=== PATIENT | female | born 1970 | race Two or more races ===

== ENCOUNTER → 2020-04-06 08:57 | Outpatient (CLI) | payer OTHER, SELFPAY ==
--- NOTE | ~2020-04-06 | XR_ITS ---
XR finger 3rd RT min 2V DATE: 04/06/2020 09:12 INDICATION: Right third digit pain TECHNIQUE: 4 views COMPARISON: None FINDINGS: There is mild soft tissue swelling centered at the proximal interphalangeal joint. No fract ure or dislocation, periosteal reaction or bone destruction. No radiopaque soft tissue foreign body o r subcutaneous emphysema. IMPRESSION: Nonspecific mild soft tissue swelling centered at proximal interphalangeal joint; no frac ture or dislocation Reviewed, dictated and finalized at location A. IMPRESSION: Nonspecific mild soft tissue swelling centered at proximal interpha langeal joint; no fracture or dislocation
== END ==
PROVIDERS: PCP Nurse Practitioner; Visit Provider Nurse Practitioner
DX: M79.646 Pain in unspecified finger(s) (principal); M79.89 Other specified soft tissue disorders
CPT/HCPCS: 73140

== ENCOUNTER 2020-06-26 15:52 | Outpatient (CLI) | payer OTHER, SELFPAY ==
--- NOTE | 2020-07-04 13:34 | WPDHOLTEREM ---
Holter/Event Monitor Holter/Event Monitor Date of procedure: 07/04/20 Procedure Type: 48 hour Holter monitor Diagnosis: tachycardia Indications: tachycardia Image/Tracing Quality: acceptable Finding: This is a 48 hours Holter monitor in which the underlying rhythm was sinus with an average heart rate of 81 beats per minute, minimum 50 beats per minute occurring at 4:06 a.m. and a maximum of 176 beats per minute occurring at 6:22 a.m.. There is no atrial fibrillation and/or atrial flutter noted. There were no prolonged pauses and or high-grade AV blocks identified. The longest RR interval was 1.4 seconds occurring at 2:08 AM. Occurring at 4:29 p.m. there is a 14 beat run of SVT without associated symptoms. At 6:22 a.m., there is an asymptomatic narrow complex tachycardia at 176 beats per minute which may represent sinus tachycardia, however, due to baseline artifact SVT cannot be excluded. Pt activity is not noted in conjunction with this event. There were 4 isolated premature ventricular contractions without sustained or nonsustained VT. In total, 88 supraventricular ectopic beats with 114 beat run as noted, 11 atrial pairs and 48 isolated premature atrial contractions. Review patient symptom diary indicates complaints of shortness of breath at 9:10 a.m. associated with probable sinus tachycardia heart rate 117 beats per minute with marked baseline artifact. At 1:09 p.m. patient later shortness of breath associated sinus rhythm heart rate 90 beats per minute without ectopy. Conclusion: Underlying rhythm is predominantly sinus with clear evidence of transient asymptomatic SVT, sinus tachycardia versus SVT at 176 beats per minute which no symptoms were noted but activity was not included. No atrial fibrillation, atrial flutter, prolonged pauses or high-grade AV blocks identified. Clinical correlation advised.
== END 2020-06-26 15:53 | disposition home or self-care (01) ==
LOC: ANHCARD 15:53
PROVIDERS: PCP Nurse Practitioner; Visit Provider Internal Medicine
DX: R00.0 Tachycardia, unspecified (principal)
CPT/HCPCS: 93225; 93226

== ENCOUNTER 2020-11-28 09:07 | Outpatient (CLI) | payer OTHER, SELFPAY ==
--- NOTE | 2021-01-07 10:58 | WPDHOMESLEEP ---
Sleep Study - Home Unattended Date of Study: 11/28/20 Ordering Provider: Corby Valero DO Interpreting Provider: Simin Medina MD Home Sleep Study Type: Apnea Link Air Height: 1.65 m Weight: 58.967 kg Body Mass Index: 21.6 Neck Circumference (inches): 13 [place]: 13 Reason for Sleep Study Tired in the day, gasping at night, brain fog, Sleep History Douglas Gilbert is a 50 year old female with excessive daytime sleepiness. She reports gasping at night and difficulty waking in the morning. She frequently awakens from sleep feeling short of breath. She constantly awakens at night with heartburn, belching or coughing. She does not snore and her fiancee does not note that she snores. She frequently has trouble sleeping with a cold and frequently wakes up gasping for breath during the night. She frequently has breathing problems at night observed by others. She occasionally sweats excessively at night she frequently notices her heart pounding or beating irregularly at night. She occasionally falls asleep during the day and occasionally falls asleep involuntarily. About twice a year she has fallen asleep while driving the car. She does not have loss of muscle tone with strong emotion. She occasionally has daytime difficulties due to excessive sleepiness. She rarely feels paralyzed on waking or falling asleep. She rarely has vivid dreamlike scenes upon awakening or falling asleep. She never feels afraid to go to sleep. She rarely has nightmares. She constantly remembers her dreams. She occasionally has racing thoughts. She rarely feels sad or depressed. She occasionally has anxiety. She frequently has muscular tension. She occasionally notices parts of her body jerking. She rarely kicks at night. She occasionally has crawling and aching feelings in her legs and occasionally has leg pain at night. She rarely has morning jaw pain. She frequently grinds her teeth during sleep. She occasionally has bothered by pain during the day. She rarely is awakened by pain at night. She constantly wakes up feeling stiff in the morning with sore or achy muscles. She constantly wakes up with pain in the neck and spine. She has fatigue, memory and concentration difficulties and she takes antacids regularly. Normal bedtime is 8:00 p.m. falling asleep within 15-20 minutes, waking at least 3 times during the night. When she awakes, she goes to the bathroom, gets a drink of water, stretches, repositions and takes deep breaths. She wakes the morning by 3:10 a.m.. On the weekends, she goes to bed later, between 9 or 10:00 p.m. and wakes at 7:00 a.m.. She has no energy. Her work shift changes, and she wakes at different times based on when she goes to work. Her wake-up time will shift between 3 3:00 a.m. 4:00 a.m. and 5:00 a.m.. She does not take naps. A short nap is not refreshing. She is drowsy for 3 hours after waking. She feels better in the morning compared other times of day Habits: Never smoked tobacco. Caffeine 3 cups per day. No alcohol or recreational drugs. FORMERLY [facility] Past Medical History Medical History (Updated 01/07/21 @ 11:08 by Simin Medina MD) Acid reflux High cholesterol History of paroxysmal supraventricular tachycardia Irritable bowel Seasonal allergies Surgical History Surgical History History of colonoscopy [place] teeth removed Family History Family History Father Diabetes mellitus Acute myocardial infarction Hypertension High cholesterol Mother Hypertension Cancer of adenoid Social History Social History Smoking status: Never smoker Alcohol intake: never Substance use: never Medications Home Medications Medication Instructions Recorded Confirmed Type cetirizine 10 mg tablet 10 mg PO DAILY 10/07/19 01/07/21 History aleisha
[2021-01-07 11:05] VITALS: BMI 21.6
== END 2020-11-28 09:08 | disposition home or self-care (01) ==
LOC: ANHCSM 09:08
PROVIDERS: PCP Nurse Practitioner; Visit Provider Internal Medicine
DX: G47.10 Hypersomnia, unspecified (principal)
CPT/HCPCS: 95806

== ENCOUNTER → 2021-09-06 07:57 | Outpatient (CLI) | payer OTHER, SELFPAY ==
[2021-09-06 14:19] LABS: SARS-CoV-2 RNA PCR Positive
[2021-09-06 14:52] LABS: Influenza A QL RT-PCR Negative (Negative); Influenza B QL RT-PCR Negative (Negative)
== END ==
PROVIDERS: PCP Nurse Practitioner; Visit Provider Internal Medicine
DX: R68.89 Other general symptoms and signs (principal); U07.1 COVID-19
CPT/HCPCS: 87502; 87804; C9803; U0003; U0005

== ENCOUNTER 2023-01-01 09:05 | Outpatient (CLI) | payer OTHER, SELFPAY ==
--- NOTE | 2023-01-01 | ECG_ITS ---
Measurements Intervals [place] Rate: 64 P: 1 MA: 133 QRS: 54 QRSD: 102 T: 38 QT: 457 QTc: 472 Interpretive Statements SINUS RHYTHM INCOMPLETE RIGHT BUNDLE BRANCH BLOCK BORDERLINE ECG NO PREVIOUS ECG AVAILABLE FOR COMPARISON Electronically Signed On 01-01-2023 10:05:34 CDT by Chilo Root D.O.
--- NOTE | ~2023-01-01 | XR_ITS ---
EXAMINATION: XR chest 2V 01/01/2023 09:40 INDICATION: Preop for neck surgery PROCEDURE: 11/01/2018 COMPARISON: Heart size normal. No focal air space disease, pulmonary edema, pleural effusion or suspe cted pneumothorax. FINDINGS: The lungs are clear. The cardiomediastinal silhouette is within normal limits. There are no pleural effusions. There is no pneumothorax suspected. IMPRESSION: 1: NO ACUTE CARDIOPULMONARY DISEASE. Reviewed, dictated and finalized at location L.
== END 2023-01-01 09:06 | disposition home or self-care (01) ==
PROVIDERS: PCP Family Medicine
DX: Z01.810 Encounter for preprocedural cardiovascular examination (principal); Z01.811 Encounter for preprocedural respiratory examination; M54.12 Radiculopathy, cervical region; I45.10 Unspecified right bundle-branch block
CPT/HCPCS: 71046; 93005

== ENCOUNTER 2023-08-04 14:05 | Outpatient (CLI) | payer OTHER, SELFPAY ==
[2023-08-04 14:59] LABS: Strep Group A RT-PCR NOT DETECTED (Negative)
[2023-08-04 15:09] LABS: Influenza A QL RT-PCR Negative (Negative); Influenza B QL RT-PCR Negative (Negative); SARS-CoV-2 RNA PCR Negative (Negative)
== END 2023-08-04 14:06 | disposition home or self-care (01) ==
LOC: ANHLAB 14:07
PROVIDERS: PCP Nurse Practitioner Family; Visit Provider Nurse Practitioner Family
DX: R69 Illness, unspecified (principal); J02.9 Acute pharyngitis, unspecified; R09.81 Nasal congestion; Z20.822 Contact with and (suspected) exposure to COVID-19
CPT/HCPCS: 87636; 87651

== ENCOUNTER → 2023-08-12 07:00 | Outpatient (CLI) | payer OTHER, SELFPAY ==
--- NOTE | ~2023-08-12 | MR_ITS ---
MRI of the cervical spine Clinical History: Gait abnormality Technique: Axial T2-weighted and gradient images, and sagittal T1-weighted, T2-weighted, and STIR antoinette ges were acquired. Findings: There is probable disc prosthesis or interbody fusion cage at the C4-C5 disc space with ass ociated susceptibility artifact. No fracture or subluxation evident. No other bone marrow signal abno rmality evident. At C2-C3, there is no disc bulge or herniation. No spinal canal stenosis, cord compression, or neural foraminal narrowing. At C3-C4, there is minimal disc osteophyte convex. No spinal canal stenosis, cord compression, or def inite neural foraminal narrowing. At C4-C5, there is no definite canal stenosis or cord compression. No definite neural foraminal narro wing. At C5-C6, there is no significant disc bulge or herniation. There is mild facet arthropathy bilateral ly. No definite canal stenosis, cord compression, or neural foraminal narrowing. At C6-C7, there is facet arthropathy, especially in the right side. There is right neural foraminal n arrowing. Left neural foramen preserved. No central canal stenosis or cord compression. No abnormal signal seen in the spinal cord. Paravertebral soft tissues are unremarkable. Impression: Mild spondylosis, as above. Probable disc prosthesis or interbody fusion cage at the C4-C5 disc level. Correlate with prior surgi ian history. Reviewed, dictated and finalized at [facility]. INE TOOL DESIGNER Impression: Mild spondylosis, as above. Probable disc prosthesis or interbody fusion cage at the C4-C5 disc level. Rigo elate with prior surgical history.
--- NOTE | ~2023-08-12 | MR_ITS ---
MRI of the brain Clinical History: Gait abnormality Technique: Axial and sagittal T1-weighted images were acquired. These were followed by axial T2-weigh lorraine, diffusion weighted, gradient, and FLAIR images. Findings: There is no abnormal signal in the brain parenchyma. No acute infarct, intracranial hemorrh age or mass lesion. Ventricles and subarachnoid spaces are unremarkable. Orbits are unremarkable. Paranasal sinuses and m astoid air cells are clear. Major intracranial flow voids appear intact. Sagittal midline structures are intact. IMPRESSION: Unremarkable exam. Reviewed, dictated and finalized at location M. ESALE ACCOUNT MANAGER IMPRESSION: Unremarkable exam.
== END ==
PROVIDERS: PCP Nurse Practitioner Family; Visit Provider Nurse Practitioner Family
DX: R26.89 Other abnormalities of gait and mobility (principal); M47.892 Other spondylosis, cervical region
CPT/HCPCS: 70551; 72141

== ENCOUNTER 2024-09-22 10:44 | Emergency (ER) | payer OTHER, SELFPAY ==
[2024-09-22] VITALS (19 sets, daily range): BP systolic 115–154; BP diastolic 61–93; PULSE 64–93; RESP 13–23; TEMP 37; O2SAT 92–100
--- NOTE | ~2024-09-22 | CT_ITS ---
EXAMINATION: CT abdomen pelvis w con DATE: 09/22/2024 16:55 INDICATION: Abdominal pain TECHNIQUE: Computed tomography (CT) of the abdomen and pelvis was performed with 100 mL Omnipaque-350 intravenous contrast. Automated exposure control and iterative reconstruction technique were employe d. The dose-length product was 275.86 mGy-cm. COMPARISON: 02/11/2015 FINDINGS: Minimal dependent atelectasis in bilateral lower lobes. Heart size is normal. No pericardial or pleur al effusion. Liver, gallbladder, spleen, pancreas, bilateral adrenal glands and kidneys are normal. B owels including the appendix are normal. Bladder is normal. 1.6 similar enhancing fibroid at the ante rior uterine body. No free intraperitoneal gas or fluid. No pathologically enlarged abdominal or pelv ic lymphadenopathy. Mild lumbar spondylosis. IMPRESSION: 1. No acute intra-abdominal/pelvic process. 2. Fibroid uterus. Reviewed, dictated and finalized at location B. ECTION AGENT
--- NOTE | ~2024-09-22 | XR_ITS ---
CHEST RADIOGRAPH, PA AND LATERAL CLINICAL HISTORY: FEVER, COUGH, VOMITING . COMPARISON: None available TECHNIQUE: PA and lateral views of the chest. FINDINGS The cardiomediastinal silhouette is unremarkable. The lungs are clear. Visualized osseous structures and soft tissues are unremarkable. IMPRESSION: No focal infiltrate or effusion. Reviewed, dictated and finalized at location A. OR HYDROGEOLOGIST
--- NOTE | 2024-09-22 11:27 | ED_ITS ---
HPI - Abdominal Pain General Chief Complaint: Abdominal Pain <Reba Feliz PA-C - Last Filed: 09/23/24 17:07> Stated Complaint: body aches, nausea, abd pain, fever, chills <Reba Feliz PA-C - Last Filed: 09/23/24 17:07> Time Seen by Provider: 09/22/24 11:27 <Reba Feliz PA-C - Last Filed: 09/23/24 17:07> Focused HPI: This is a 54 year old female that presents to the ER for abdominal pain. Ongoing over the last couple of days. Reports associated nausea, vomiting, headache, myalgias, fevers. GENERAL: Well-appearing, well-nourished, and in no acute distress. HEAD: Normocephalic, atraumatic. CHEST: Clear to auscultation. ?No respiratory distress. HEART: Regular rate and rhythm.? NEURO: ?Alert and oriented x3. Patient screened in triage and initial orders placed.? ?Additional care and disposition to be based upon?diagnostic testing and treatment. <Reba Feliz PA-C - Last Filed: 09/23/24 17:07> History of Present Illness HPI narrative: Agree with the above HPI <Ger Rose MD - Last Filed: 09/22/24 20:00> Related Data Home Medications: Home Medications ?Medication ?Instructions ?Recorded ?Confirmed ?Last Taken ?Type cetirizine 10 mg tablet (Zyrtec) 10 mg PO DAILY 10/07/19 08/09/24 Unknown History <Reab Feliz PA-C - Last Filed: 09/23/24 17:07> Allergies/Adverse Reactions: Allergies Allergy/AdvReac Type Severity Reaction Status Date / Time Penicillins Allergy Severe hives Verified 09/22/24 12:44 <Reba Feliz PA-C - Last Filed: 09/23/24 17:07> Review of Systems 2 Review of Systems: All systems reviewed & are unremarkable except as noted in HPI and below <Ger Rose MD - Last Filed: 09/22/24 20:00> PMFSH Past Medical History Medical History: Medical History COVID-19 Hypothyroidism Mild persistent reactive airway disease with acute exacerbation Osteopenia Seasonal allergies History of paroxysmal supraventricular tachycardia Irritable bowel High cholesterol Acid reflux <Reba Feliz PA-C - Last Filed: 09/23/24 17:07> Surgical History Surgical History: Surgical History Hx of cervical spine surgery [place] teeth removed History of colonoscopy <Reba Feliz PA-C - Last Filed: 09/23/24 17:07> Family History Family History: Family History Father Diabetes mellitus Acute myocardial infarction Hypertension High cholesterol Mother Hypertension Cancer of adenoid Father Family history of mental disorder Cerebrovascular accident Family history of Parkinson's disease Family history of coronary artery disease Family history of congestive heart failure Sibling Breast cancer <Reba Feliz PA-C - Last Filed: 09/23/24 17:07> Social History Social History: Social History Smoking status: Never smoker Second hand tobacco smoke exposure: No Alcohol intake: never Substance use: never Do You Feel Safe in your Home?: Yes Lack of Transportation: No Lack of Food: Sometimes True Current Housing: I Have Housing Concerned About Future Housing: No Difficulty Paying Gas/Electric Bills: YES Difficulty Paying for Meds: Decline to Answer Currently Unemployed: No Education: Bachelor's Degree Difficulty w/ Childcare or Family Care: No Living arrangements: with family Occupation/Education: occupation Additional occupation/education comments: [employer] Gender identity (if verbalized by the patient): Female Sexual Orientation (if Verbalized by the Patient): Straight or Heterosexual <Reba Feliz PA-C - Last Filed: 09/23/24 17:07> Exam 2 Narrative: APPEARANCE: Well appearing, no pain, no distress, well-nourished. HEAD: normocephalic, atraumatic. EYES: PERRLA/EOMI, conjunctivae clear. NOSE: Normal no drainage EARS:TMS clear with good light reflex. THROAT: Pharynx clear, no exudate. NECK: Supple. No adenopathy, no masses. RESPIRATORY: Airway patent, respirations nonlabored. Clear to auscultation bilaterally, no rales, rhonchi, wheezing. CARDIOVASCULAR: Regular rate and rhythm without murmurs rubs or gallops. ABDOMINAL: Epigastric tenderness to palpation MUSCULOSKELETAL: Moves all extremities. Strength/ROM intact, No edema, No calf tenderness. NEURO: Alert. Cranial nerves II through XII intact. Good gait. Good coordination SKIN: Warm, dry. Normal Color <Ger Rose MD - Last Filed: 09/22/24 20:00> Course Vital Signs Vital signs: Vital Signs Temperature 98.6 F 09/22/24 10:59 Pulse Rate 93 09/22/24 10:59 Respiratory Rate 16 09/22/24 10:59 Blood Pressure 129/89 09/22/24 10:59 Pulse Oximetry 98 09/22/24 10:59 Oxygen Delivery Room Air 09/22/24 10:59 Temperature 98.6 F 09/22/24 10:59 Pulse Rate 66 09/22/24 18:23 Respiratory Rate 16 09/22/24 18:23 Blood Pressure 136/85 09/22/24 18:23 Pulse Oximetry 96 09/22/24 18:23 Oxygen Delivery Room Air 09/22/24 10:59 <Reba Feliz PA-C - Last Filed: 09/23/24 17:07> Vital Signs Temperature 98.6 F 09/22/24 10:59 Pulse Rate 93 09/22/24 10:59 Respiratory Rate 16 09/22/24 10:59 Blood Pressure 129/89 09/22/24 10:59 Pulse Oximetry 98 09/22/24 10:59 Oxygen Delivery Room Air 09/22/24 10:59 Temperature 98.6 F 09/22/24 10:59 Pulse Rate 66 09/22/24 18:23 Respiratory Rate 16 09/22/24 18:23 Blood Pressure 136/85 09/22/24 18:23 Pulse Oximetry 96 09/22/24 18:23 Oxygen Delivery Room Air 09/22/24 10:59 <Ger Rose MD - Last Filed: 09/22/24 20:00> MDM - Abdominal Pain MDM Narrative Medical decision making narrative: 54-year-old female presents to the emergency department for evaluation for cough congestion flu-like symptoms and abdominal pain. Patient was afebrile with no leukocytosis and hemoglobin of 13.4. Patient had no significant abnormalities on her CMP with normal AST ALT alk-phos and lipase. Urine did have ketones but no significant evidence of infection, patient did test positive for influenza a was negative influenza B and for COVID. CT abdomen pelvis was ordered due to the patient complaint of epigastric abdominal pain. CT scan was negative. Patient was treated with famotidine, GI cocktail and Protonix. On re-evaluation patient states she does feel significantly improved. Patient does state that she takes ibuprofen daily for abdominal pain. Patient was advised to hold off on the ibuprofen during this current illness. Patient will be provided albuterol, Tessalon Perles and additional medication for pain control. <Ger Rose MD - Last Filed: 09/22/24 20:00> Differential Diagnosis Differential diagnosis: Likely abdominal pain, acute appendicitis, calculus of kidney, constipation, diverticulitis, endometriosis, gastroenteritis, pancreatitis, small bowel obstruction and other <Ger Rose MD - Last Filed: 09/22/24 20:00> Lab Data Attestation: I reviewed the patient's lab results. <Ger Rose MD - Last Filed: 09/22/24 20:00> Result diagrams: 09/22/24 11:32 09/22/24 11:32 <Reba Feliz PA-C - Last Filed: 09/23/24 17:07> Labs: Lab Results 09/22/24 09/22/24 09/22/24 Range/Units 11:32 11:42 11:56 WBC 2.8 L (4.5-10.0) K/mm3 RBC 4.94 (4.2-5.4) M/mm3 Hgb 13.4 (12.0-15.0) g/dL Hct 41.9 (37.0-47.0) % MCV 84.8 (80-100) fl MCH 27.1 (26-34) pg MCHC 32.0 (32-36) g/dl RDW 13.0 (11.5-14.5) % Plt Count 265 (150-375) k/mm3 MPV 8.7 (7.4-10.4) fl Immature Gran % (Auto) 0.0 (0-0.5) % Neut % (Auto) 23.0 L (45.5-73.1) % Lymph % (Auto) 63.0 H (18.3-44.2) % [place] % (Auto) 13.2 H (2.6-8.5) % Eos % (Auto) 0.4 (0-4.4) % Baso % (Auto) 0.4 (0.2-1.2) % Lymph # (Auto) 1.77 (0.9-3.2) K/mm3 [place] # (Auto) 0.4 (0.1-0.6) K/mm3 Eos # (Auto) 0.0 (0-0.3) K/mm3 Baso # (Auto) 0.0 (0.0-0.1) K/mm3 Abs Immat Gran (auto) 0.00 (0.00-0.031) K/mm3 Absolute Neuts (auto) 0.7 L (1.3-6.7) K/mm3 Absolute Nucleated RBC 0.000 (0.0-0.012) K/mm3 Nucleated RBC % 0.0 (0.0-0.2) % Atypical Lymphocytes Present Platelet Estimate Adequate (Adequate) Schistocytes None seen Sodium 140 (137-145) mmol/L Potassium 3.8 (3.4-5.0) mmol/L Chloride 102 (98-107) mmol/L Carbon Dioxide 28 (22-30) mmol/L Anion Gap 10 (4-12) mmol/L BUN 12 (7-17) mg/dL Creatinine 0.66 L (0.7-1.0) mg/dL Estim Creat Clear Calc 74 ml/min Estimated GFR > 60 (59 - ) Glucose 100 (65-110) mg/dL Calcium 9.0 (8.4-10.2) mg/dL Total Bilirubin 0.5 (0.2-1.3) mg/dL AST 35 (14-36) U/L ALT 32 (6-35) U/L Alkaline Phosphatase 121 (38-126) U/L Total Protein 8.0 (6.3-8.2) g/dL Albumin 4.1 (3.5-5.1) g/dL Lipase 170 (23-300) U/L Urine Color Dark yellow (Yellow) Urine Appearance Cloudy H (Clear) Urine pH 5.5 (5.0-9.0) Ur Specific [place] 1.023 (1.001-1.035) Urine Protein 1+ H (Negative) mg/dL Urine Glucose (UA) Negative (Negative) mg/dL Urine Ketones 1+ H (Negative) mg/dL Ur Blood (Man) Trace (Negative) Urine Nitrate Negative (Negative) Urine Bilirubin 1+ H (Negative) Urine Urobilinogen 1.0 (<2.0) mg/dL Add Ur Microanalysis Reviewed Leukocyte Esterase Rfl Trace H (Negative) BEN/UL Urine RBC 3-5 H (0-2) /hpf Urine WBC 6-10 H (0-3) /hpf Ur Squamous Epith Cells Moderate (Few) /hpf Calcium Oxalate Crystal Present (None) /hpf Urine Bacteria 1+ H /hpf Urine Casts 0-2 Urine Mucus Present /lpf POC Urine HCG, Qual Negative (Negative) Influenza A (RT-PCR) Positive A (Negative) Influenza B (RT-PCR) Negative (Negative) SARS-CoV-2 RNA (RT-PCR) Negative (Negative) <Reba Feliz PA-C - Last Filed: 09/23/24 17:07> Lab Results 09/22/24 09/22/24 09/22/24 Range/Units 11:32 11:42 11:56 WBC 2.8 L (4.5-10.0) K/mm3 RBC 4.94 (4.2-5.4) M/mm3 Hgb 13.4 (12.0-15.0) g/dL Hct 41.9 (37.0-47.0) % MCV 84.8 (80-100) fl MCH 27.1 (26-34) pg MCHC 32.0 (32-36) g/dl RDW 13.0 (11.5-14.5) % Plt Count 265 (150-375) k/mm3 MPV 8.7 (7.4-10.4) fl Immature Gran % (Auto) 0.0 (0-0.5) % Neut % (Auto) 23.0 L (45.5-73.1) % Lymph % (Auto) 63.0 H (18.3-44.2) % [place] % (Auto) 13.2 H (2.6-8.5) % Eos % (Auto) 0.4 (0-4.4) % Baso % (Auto) 0.4 (0.2-1.2) % Lymph # (Auto) 1.77 (0.9-3.2) K/mm3 [place] # (Auto) 0.4 (0.1-0.6) K/mm3 Eos # (Auto) 0.0 (0-0.3) K/mm3 Baso # (Auto) 0.0 (0.0-0.1) K/mm3 Abs Immat Gran (auto) 0.00 (0.00-0.031) K/mm3 Absolute Neuts (auto) 0.7 L (1.3-6.7) K/mm3 Absolute Nucleated RBC 0.000 (0.0-0.012) K/mm3 Nucleated RBC % 0.0 (0.0-0.2) % Atypical Lymphocytes Present Platelet Estimate Adequate (Adequate) Schistocytes None seen Sodium 140 (137-145) mmol/L Potassium 3.8 (3.4-5.0) mmol/L Chloride 102 (98-107) mmol/L Carbon Dioxide 28 (22-30) mmol/L Anion Gap 10 (4-12) mmol/L BUN 12 (7-17) mg/dL Creatinine 0.66 L (0.7-1.0) mg/dL Estim Creat Clear Calc 74 ml/min Estimated GFR > 60 (59 - ) Glucose 100 (65-110) mg/dL Calcium 9.0 (8.4-10.2) mg/dL Total Bilirubin 0.5 (0.2-1.3) mg/dL AST 35 (14-36) U/L ALT 32 (6-35) U/L Alkaline Phosphatase 121 (38-126) U/L Total Protein 8.0 (6.3-8.2) g/dL Albumin 4.1 (3.5-5.1) g/dL Lipase 170 (23-300) U/L Urine Color Dark yellow (Yellow) Urine Appearance Cloudy H (Clear) Urine pH 5.5 (5.0-9.0) Ur Specific [place] 1.023 (1.001-1.035) Urine Protein 1+ H (Negative) mg/dL Urine Glucose (UA) Negative (Negative) mg/dL Urine Ketones 1+ H (Negative) mg/dL Ur Blood (Man) Trace (Negative) Urine Nitrate Negative (Negative) Urine Bilirubin 1+ H (Negative) Urine Urobilinogen 1.0 (<2.0) mg/dL Add Ur Microanalysis Reviewed Leukocyte Esterase Rfl Trace H (Negative) BEN/UL Urine RBC 3-5 H (0-2) /hpf Urine WBC 6-10 H (0-3) /hpf Ur Squamous Epith Cells Moderate (Few) /hpf Calcium Oxalate Crystal Present (None) /hpf Urine Bacteria 1+ H /hpf Urine Casts 0-2 Urine Mucus Present /lpf POC Urine HCG, Qual Negative (Negative) Influenza A (RT-PCR) Positive A (Negative) Influenza B (RT-PCR) Negative (Negative) SARS-CoV-2 RNA (RT-PCR) Negative (Negative) <Ger Rose MD - Last Filed: 09/22/24 20:00> Imaging Data Radiologist's impression: ITS Impressions Chest X-Ray 09/22/24 12:02 IMPRESSION: No focal infiltrate or effusion. Abdomen/Pelvis CT 09/22/24 16:58 IMPRESSION: 1. No acute intra-abdominal/pelvic process. 2. Fibroid uterus. <Reba Feliz PA-C - Last Filed: 09/23/24 17:07> ITS Impressions Chest X-Ray 09/22/24 12:02 IMPRESSION: No focal infiltrate or effusion. Abdomen/Pelvis CT 09/22/24 16:58 IMPRESSION: 1. No acute intra-abdominal/pelvic process. 2. Fibroid uterus. <Ger Rose MD - Last Filed: 09/22/24 20:00> Critical Care Time Critical Care Time Critical Care Time: No <Reba Feliz PA-C - Last Filed: 09/23/24 17:07> Discharge Plan Discharge Clinical Impression: Epigastric abdominal pain, Influenza A <Reba Feliz PA-C - Last Filed: 09/23/24 17:07> Patient Disposition: Home, Self-Care <Reba Feliz PA-C - Last Filed: 09/23/24 17:07> Condition: Stable <Reba Feliz PA-C - Last Filed: 09/23/24 17:07> Instructions: Antibiotic Form, Diet for Stomach Ulcers and Gastritis (ED), Influenza (DC), Abdominal Pain (ED) <Reba Feliz PA-C - Last Filed: 09/23/24 17:07> Additional Instructions: Refrain from taking ibuprofen. Continue to take your pantoprazole all as directed. Albuterol inhaler as needed for shortness of breath. Tessalon Perles as needed for cough suppression. [place] as needed for additional pain control. Have close follow-up with your primary care physician. <Reba Feliz PA-C - Last Filed: 09/23/24 17:07> Patient Language: Czech <Reba Feliz PA-C - Last Filed: 09/23/24 17:07> Prescriptions: New hydrocodone-acetaminophen 5-325 mg tablet 1 tablet PO Q12H PRN (Reason: pain) Qty: 14 0RF benzonatate 100 mg capsule 100 mg PO TID PRN (Reason: cough) Qty: 14 0RF albuterol sulfate 90 mcg/actuation HFA aerosol inhaler 1 puff inhalation QID Qty: 6.7 0RF ondansetron 4 mg tablet,disintegrating 4 mg PO Q8H PRN (Reason: nausea and vomiting) Qty: 14 0RF No Action cetirizine [Zyrtec] 10 mg tablet 10 mg PO DAILY fluticasone propionate [Flonase Allergy Relief] 50 mcg/actuation spray,suspension 2 spray intranasal DAILY PRN (Reason: nasal congestion) Qty: 16 0RF Rx Instructions: administer into each nostril metoprolol succinate 50 mg tablet extended release 24 hr 50 mg PO DAILY Qty: 90 1RF prochlorperazine maleate [Compazine] 10 mg tablet 10 mg PO Q8H PRN (Reason: nausea and vomiting) Qty: 30 0RF dicyclomine 20 mg tablet 20 mg PO TID PRN (Reason: abdominal pain) Qty: 30 0RF albuterol sulfate 90 mcg/actuation HFA aerosol inhaler 2 puff INHALATION Q4H PRN (Reason: shortness of breath or wheezing) Qty: 8.5 0RF cholecalciferol (vitamin D3) 1,250 mcg (50,000 unit) capsule 50,000 unit PO WEEKLY Qty: 12 3RF meloxicam 15 mg tablet See Rx Instructions .ROUTE .COMPLEX Qty: 90 0RF Dose Instruction: TAKE 1 TABLET BY MOUTH EVERY DAY Rx Instructions: TAKE 1 TABLET BY MOUTH EVERY DAY pantoprazole 20 mg tablet,delayed release (DR/EC) 20 mg PO QAM Qty: 90 3RF <Reba Feliz PA-C - Last Filed: 09/23/24 17:07> Follow-up/Referrals: Anjelica Cruz APRN [Primary Care Provider] - <Reba Feliz PA-C - Last Filed: 09/23/24 17:07>
--- OUTSIDE RECORDS SUMMARY | 2024-09-22 11:30 | XMS_ITS | Referral Summary ---
Author Organization [facility] [address] Address [address] [place] [address] Care Team Providers Care Computer Forensic Examiner Name Role Phone Nancy Anjelica Primary Care Provider Unavailabl e Allergies Active Allergy Reactions Criticality Noted Date Comments Amoxicillin Unknown 01/15/2021 Penicillins Unknown 01/14/2021 Medications cetirizine (ZyrTEC) 10 mg tablet Take 1 tablet (10 mg total) by mouth daily Active cholecalciferol (cholecalcifero l) 25 mcg (1,000 unit) tablet Take 1 tablet (1,000 Units total) by mouth daily Active pantoprazole DR (PROTONIX) 20 mg EC tablet Take 1 tablet (20 mg total) by mouth daily Active ibuprofen (ADVIL,MOTRIN) 600 mg tablet Take 1 tablet (600 mg total) by mouth every 6 (six) hours as needed for pain 30 tablet 04/05/2021 Active metoprolol XL (TOPROL-XL) 25 mg extended release tabletIndicatio ns:SVT (supraventricul ar tachycardia) (HCC) Take 1 tablet (25 mg total) by mouth nightly 04/30/2021 Active meloxicam (MOBIC) 15 mg tablet Take 1 tablet (15 mg total) by mouth daily 03/16/2023 Active Active Problems Problem Noted Date Diagnosed Date ROMERO (dyspnea on exertion) 03/18/2021 Other fatigue 03/18/2021 Lipid screening 01/14/2021 SVT (supraventricular tachycardia) Social History Tobacco Use Types Packs/Day Years Used Date Smoking Tobacco: Never Smokeless Tobacco: Never Personal Safety Answer Date Recorded Getting School Help Needed Not on file 10/15 Comments Unknown Sex and Gender Information Value Date Recorded Sex Assigned at Not on file Legal Sex Female 10:20 AM CDT Gender Identity Not on file Sexual Orientation Not on file Last Filed Vital Signs Vital Sign Reading Time Taken Comments Blood Pressure 133/88 04/08/2023 1:27 PM CDT Pulse 74 04/08/2023 1:27 PM CDT Temperature 36.8 ??C (98.2 ??F) 04/05/2021 3:55 PM CD T Respiratory Rate 17 04/05/2021 3:55 PM CDT Oxygen Saturation 99% 04/08/2023 1:27 PM CDT Inhaled Oxygen Concentration - - Weight 66.8 kg (147 lb 3.2 oz) 04/08/2023 1:27 P M CDT Height 170.2 cm (5' 7 ) 12/24/2022 9:10 AM CDT Body Mass Index 23.05 12/24/2022 9:10 AM CDT Plan of Treatment Not on file Insurance [address] [id number] [facility] [employer] [facility] HMO/PPO Address: [facility] [address] [place] [address] Care Teams Computer Forensic Examiner Relationship Specialty Start Date End Date Anjelica Cruz PCP - General Family Medicine 09/16/22
--- OUTSIDE RECORDS SUMMARY | 2024-09-22 11:30 | XMS_ITS | Data Portability ---
Author Organization [place] - [facility], [facility] [address] Address [address] [facility] [facility] [address], [address] [place] [address] Assessment No assessment recorded. Plan of Treatment Reminders Order Date Submit Date Provider Last Modified By Organization Details Last Modified Time Details Appointments None record ed. Lab None record ed. Referral physic al therap ist referr al 2016 017 alvaro Not available 7 15:23:54 Procedures sleep study, diagno stic (PROC) - HOME STUDY PREFER RED 2017 [facility] [address] [place], [address], 8 09:54:20 pulmon carline functi on test proced ure (PROC) 2017 018 [email or web address] [facility] (Central Scheduling), [address] [place], [address], 8 12:04:04 Surgeries None record ed. Imaging XR, chest, 2 view 2017 018 [email or web address] s [facility], [address] [place], [address], 8 10:48:26 Medication Orders doxycy garcía monohy drate 100 mg tablet 2016 017 artemio Not available 7 15:55:38 cyclob enzapr ine 5 mg tablet 2016 017 [email or web address] Not available 7 15:03:40 meloxi cam 15 mg tablet 2016 017 [email or web address] Not available 7 15:03:44 doxycy garcía monohy drate 100 mg tablet 2017 018 INTERFACE [facility] #[id number], [address] [place], [address], 8 12:05:08 Patient TargetsNo targets recorded. Patient Instructions Encounter Date Encounter Id Patient Instructions Last Modified By Organization Details Last Modified Time 11/10/2016 [id number] back care and preventing injuries: care instructions artemio Not available 11/10/2016 16:34:31 getting back to normal after low back pain: care instructions artemio Not available 11/10/2016 16:34:31 learning about relief for back pain artemio Not available 11/10/2016 16:34:31 Reason for Referral Referring Physician: Bright Grant, Family Medicine, Encounter Date: 11/10/2016 Problems Name Problem SNOMED Code Status Onset Date Resolution Date Notes Provider Name and Address Organization Details Recorded Time Kip schultz medical examinat ion Completed 201104/16/2016 Vaughn Grant MD [address], [place], [address] , [facility] 6 15:44:40 Evaluati on finding Completed 201504/16/2016 Vaughn Grant MD [address], [place], [address] , [facility] 6 15:44:40 Urinary tract infectio us disease 10300973 Completed 201004/16/2016 Vaughn Grant MD [address], [place], [address] , [facility] 6 15:44:40 Irregula r periods 25111421 Completed 201108/26/2017 Recorded Elsewher e: No; Location : [facility]; Source: Vaughn Pedroza MD [address], [place], [address] , [facility] 8 11:37:50 Screenin g for malignan t neoplasm of breast Completed 201504/16/2016 Vaughn Grant MD [address], [facility] [place], [address] , [facility] 6 15:44:40 Inflamma tory disease of liver 708211199 Completed 201511/10/2016 Recorded Elsewher e: No; Location : [facility] ; Source: Vaughn Pedroza MD [address], [facility] [place], [address] , [facility] 7 16:25:28 Vitamin D deficien cy 31636533 Active 2015 Recorded Elsewher e: No; Location : [facility] ; Source: EHR Not Available [facility] 6 10:41:35 Vitamin D deficien cy 44566425 Completed 201512/21/2015 Vaughn Grant MD [address], [facility] [place], [address] , [facility] 6 15:44:40 Biotin deficien cy disease 56242915 Completed 201508/26/2017 Vaughn Grant MD [address], [place], [address] , [facility] 8 11:37:48 Blood chemistr y outside referenc e range 533258965 Completed 201504/16/2016 Vaughn Grant MD [address], [place], [address] , [facility] 6 15:44:40 Venereal disease screenin g Completed 201104/16/2016 Vaughn Grant MD [address], [place], [address] , [facility] 6 15:44:40 Adult health examinat ion Completed 201504/16/2016 Vaughn Grant MD [address], [facility] [place], [address] , [facility] 6 15:44:40 Lack of energy 759266628 Completed 201508/26/2017 Recorded Elsewher e: No; Location : [facility] ; Source: Vaughn Pedroza MD [address], [facility] [place], [address] , [facility] 8 11:37:37 Syncope and collapse 505824236 Completed 201504/16/2016 Vaughn Grant MD [address], [facility] [place], [address] , [facility] 6 15:44:40 Atypical squamous cells of undeterm ined signific ance on cervical Papanico laou smear 541116134 Completed 201108/26/2017 Recorded Elsewher e: No; Location : [facility]; Source: Vaughn Pedroza MD [address], [place], [address] , [facility] 8 11:37:44 Gastroes ophageal reflux disease 752483279 Active Vaughn Grant MD [address], [facility] [place], [address] , [facility] 6 16:33:51 Clinical finding Completed 201511/10/2016 Recorded Elsewher e: No; Location : [facility] ; Source: Vaughn Pedroza MD [facility],[address], [place], [address] , [facility] 7 16:14:07 Vitamin B deficien cy 22567449 Active 2015 Recorded Elsewher e: No; Location : [facility] ; Source: EHR Not Available [facility] 6 10:41:35 Gastroes ophageal reflux disease without esophagi tis 438029642 Completed 201511/10/2016 Recorded Elsewher e: No; Location : [facility] ; Source: Vaughn Pedroza MD [facility],[address], [place], [address] , [facility] 7 16:14:04 Gastroen teritis 16435792 Completed 201511/10/2016 Recorded Elsewher e: No; Location : [facility] ; [facility], [place], [address] , [facility] 7 16:14:02 Problem Notes None recorded. Procedures Surgical History Date Name Laterality Status Provider Name and Address Organization Details Recorded Time 08/24/19 14 Colonoscopy completed Vaughn Grant MD [address], [place], [address], [facility] 07/25/2016 15:43:08 08/24/19 14 EGD completed Vaughn Grant MD [address], [place], [address], [facility] 07/25/2016 15:43:08 08/24/19 12 Other completed Christian Gay [facility] 04/16/2016 12:07:47 Imaging Results None recorded. Procedure Notes None recorded. Medical Equipment None Reported. Allergies Allergen ID Allergen Name Allergen Category Reaction Reaction Severity Criticality Documentation Date Start Date Code Code System Note Provider Name and Address Organization Details Recorded Time 275956 No known allergy (situatio n) Not available Not available Not available Not available 12/20/2015 [id number] Vaughn Goldberg MD [address], [place], [address], [facility] 7 12:07:41 [id number] Product containin g penicilli n and antibioti c (product) medicatio n hives Not available Not available 08/28/2016 [id number] Vaughn Goldberg MD [address], [place], [address], [facility] 7 12:07:23 Medications Name Sig Start Date Stop Date Status Note LastModified by Organization Details LastModified Time azithromyci n 250 mg tablet 08/26 completed Not Available Not Available Not Available meloxicam 15 mg tablet TAKE ONE TABLET BY MOUTH DAILY 02/09 completed Not Available Not Available Not Available ondansetron HCl 4 mg tablet active Not Available Not Available Not Available doxycycline monohydrate 100 mg tablet Take 1 tablet twice a day by oral route for 10 days. 2017 active Not Available Not Available Not Avai lable pantoprazol e 40 mg tablet,marilynn yed release TAKE 1 TABLET(S) EVERY DAY BY ORAL ROUTE. active Not Available Not Available No t Available folic acid 1 mg tablet Take 1 tablet every day by oral route. active Not Available Not Available No t Available hydrocodone 10 mg-chlorphe niramine 8 mg/5 mL oral susp extend.rel 12hr TAKE 5 ML EVERY 12 HOURS BY ORAL ROUTE. active Not Available Not Available No t Available Vitamin D2 1,250 mcg (50,000 unit) capsule Take 1 capsule every week by oral route. 08/26 completed Not Available Not Available Not Available Vitamin B-12 1,000 mcg tablet Take 1 microgram every day by oral route. active Not Available Not Available No t Available Vitamin D3 25 mcg (1,000 unit) tablet Take 2 tablets every day by oral route. active Not Available Not Available No t Available cyclobenzap rine 5 mg tablet TAKE ONE TABLET BY MOUTH AT BEDTIME 02/09 completed Not Available Not Available Not Available chlorhexidi ne gluconate 0.12 % mouthwash Place 1 applicati on every day by mucous mem route for 30 days. active Not Available Not Available No t Available Vitals Date Recorded Body height Oxygen saturation Oxygen saturation in Arterial blood by Pulse oximetry Body mass index (BMI) Body temperature Body weight Heart rate Provider Name and Address Organization Details Last Updated DateTime 7 166.37 cm 98 % 98 % 23.3 kg/m2 97.8 [degF] 89650.2 50001 g 96 /min Christian Delaney [facility] 7 11:40:52 Date Recorded Body height Provider Name an d Address Organization Details Last Updated DateTime 11/10/2016 166.37 cm Christian Gay [facility] 11/10/2016 15:55:23 Date Recorded Body weight Provider Name an d Address Organization Details Last Updated DateTime 11/10/2016 13555.12 g Christian Gay [facility] 11/10/2016 16:02:37 Date Recorded Body mass index (BMI) Provider Name and Address Organization Details Last Updated DateTime 11/10/2016 23.3 kg/m2 Christian Gay [facility] 11/10/2016 16:02:38 Date Recorded Body temperature Provider Name a nd Address Organization Details Last Updated DateTime 11/10/2016 98.1 [degF] Christian Gay [facility] 11/10/2016 16:02:59 Date Recorded Heart rate Provider Name an d Address Organization Details Last Updated DateTime 11/10/2016 102 /min Christian Gay [facility] 11/10/2016 16:03:03 Date Recorded Oxygen saturation Oxygen saturation in Arterial blood by Pulse oximetry Provider Name and Address Organization Details Last Updated DateTime 11/10/2016 99 % 99 % Christian Gay [facility] 11/10/2016 16:04:20 Date Recorded Body height Provider Name an d Address Organization Details Last Updated DateTime 11/13/2016 166.37 cm Aridana Carson [facility] 11/13/2016 11:19:23 Date Recorded Body weight Body mass index (BMI) Provider Name and Address Organization Details Last Updated DateTime 11/13/2016 07638.52 g 23.1 kg/m2 Ariadna bravo [facility] 11/13/2016 11:19:35 Date Recorded Heart rate Provider Name an d Address Organization Details Last Updated DateTime 11/13/2016 92 /min Ariadna Carson [facility] 11/13/2016 11:20:23 Date Recorded Body temperature Provider Name a nd Address Organization Details Last Updated DateTime 11/13/2016 97.9 [degF] Ariadna Carson [facility] 11/13/2016 11:21:00 Date Recorded Body height Provider Name an d Address Organization Details Last Updated DateTime 02/09/2017 166.37 cm Stacia Ta [facility] 02/09/2017 14:54:55 Date Recorded Body mass index (BMI) Body weight Provider Name and Address Organization Details Last Updated DateTime 02/09/2017 22.7 kg/m2 20952.15 g Stacia LUNDY Alli [facility] 02/09/2017 14:57:53 Date Recorded Oxygen saturation Oxygen saturation in Arterial blood by Pulse oximetry Provider Name and Address Organization Details Last Updated DateTime 02/09/2017 98 % 98 % Stacia Jade [facility] Alli [facility] 02/09/2017 14:58:08 Date Recorded Body temperature Provider Name a nd Address Organization Details Last Updated DateTime 02/09/2017 97.7 [degF] Stacia Ta [facility] 02/09/2017 14:58:19 Date Recorded Heart rate Provider Name an d Address Organization Details Last Updated DateTime 02/09/2017 76 /min Stacia Ta [facility] 02/09/2017 14:58:22 Date Recorded Body height Provider Name an d Address Organization Details Last Updated DateTime 08/26/2017 166.37 cm Ariadna LUNDY Alli [facility] 08/26/2017 11:21:50 Date Recorded Body mass index (BMI) Body weight Provider Name and Address Organization Details Last Updated DateTime 08/26/2017 22.9 kg/m2 43709.93 g Ariadna Saldaña [facility] Nikko bravo [facility] 08/26/2017 11:24:12 Date Recorded Heart rate Provider Name an d Address Organization Details Last Updated DateTime 08/26/2017 108 /min Ariadna Saldaña [facility] Alli [facility] 08/26/2017 11:24:38 Date Recorded Body temperature Provider Name a nd Address Organization Details Last Updated DateTime 08/26/2017 97.5 [degF] Ariadna Saldaña [facility] 08/26/2017 11:24:40 Date Recorded Systolic blood pressure Diastolic blood pressure Provider Name and Address Organization Details Last Updated DateTime 08/28/2016 98 mm[Hg] 64 mm[Hg] Christian Gay [facility] 08/28/2016 11:46:23 Date Recorded Systolic blood pressure Diastolic blood pressure Provider Name and Address Organization Details Last Updated DateTime 11/10/2016 112 mm[Hg] 80 mm[Hg] Christian Gay [facility] 11/10/2016 16:04:24 Date Recorded Systolic blood pressure Diastolic blood pressure Provider Name and Address Organization Details Last Updated DateTime 11/13/2016 98 mm[Hg] 64 mm[Hg] Ariadna Saldaña [facility] 11/13/2016 11:24:30 Date Recorded Systolic blood pressure Diastolic blood pressure Provider Name and Address Organization Details Last Updated DateTime 02/09/2017 108 mm[Hg] 72 mm[Hg] Stacia Jade [facility] 02/09/2017 15:06:59 Date Recorded Systolic blood pressure Diastolic blood pressure Provider Name and Address Organization Details Last Updated DateTime 08/26/2017 100 mm[Hg] 68 mm[Hg] Ariadna Saldaña [facility] 08/26/2017 11:35:07 Social History Question Answer Notes LastModified by Organizat ion Details LastModified Time Tobacco Smoking Status Never Smoker Christian bar [facility] 04/16/2016 12:07:47 What Is Your Level Of Alcohol Consumption? Occasional artemio Information not available 04/16/2016 What Is Your Level Of Caffeine Consumption? Moderate Coffee Information not available 04/16/2016 How Much Tobacco Do You Chew? None Information not available 04/16/2016 What Type Of Diet Are You Following? 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 No Information not available 04/16/2016 Marital Status Single Information not available 04/16/2016 What Was The Date Of Your Most Recent Tobacco Screening? 08/26/2017 Information n ot available 03/18/2019 Sex: Unknown Functional Status Question Answer Note LastModified by Organizat ion Details LastModified Time What is your exercise level? Occasional Information not available 04/16/2016 Mental Status None recorded. Family History Relationship Description Onset Age of this Age Resolved Age Notes LastModified by Organization Details LastModified Time Father Heart disease [email or web address] Not available 07/25 15:23:37 Father Diabetes mellitus [email or web address] Not available 07/25 15:23:37 Father Parkinsonism [email or web address] Not brenda ilable 07/25/2016 15:23:37 Maternal Aunt Malignant tumor of breast [email or web address] Not available 07/25 15:23:37 Mother Carcinomatos is [email or web address] Not available 07/25 15:23:37 Paternal Aunt Diabetes mellitus [email or web address] Not available 07/25 15:23:37 Paternal Grandfather Diabetes mellitus [email or web address] Not available 07/25 15:23:37 Medical History No medical history recorded. Gynecological HistoryNo gynecological history recorded. Obstetrics History GPAL:G 0 P 0 0 0 0 Immunizations Vaccine Type Date Status Note Provider Nam e and Address Organization Details Recorded Time Influenza, MDCK, quadrivalent , PF 8 cancelled patient objection Not Available [facility] 09/10/2019 02:19:18 Past Encounters Encounter ID Performer Location Encounter Start Date Encounter Closed Date Diagnosis/Indication Diagnosis SNOMED-CT Code Diagnosis ICD10 Code Diagnosis Note [id number] [facility] [place] [address] [facility], [address] [place] [address] 07/10/2011 00:00:00 [id number] [facility] [place] [address] [facility] [facility], [address] [place] [address] 09/25/2011 00:00:00 [id number] [facility] [place] [address] [facility], [address] [place] [address] 10/24/2015 00:00:00 [id number] [facility] [place] [address] [facility] [place] [address] 09/26/2015 00:00:00 [id number] [facility] [place] [address] [facility], [address] [place] [address] 12/02/2011 00:00:00 [id number] Rudy ANDERSON, Vaughn Sagastume [facility] [address] [place] [address] 04/16/2016 11:52:03 04/16/2016 13:03:45 Upper respiratory infection 02533995 J06.9 OTC Flonase tussionex prn Lateral epicondylitis 20 6722867 M77.11 OTC analgesics home exercises she may pursue PT through work [id number] Vaughn Grant MD 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 discussed neuropsych testing [id number] Vaughn Grant MD [facility] [address] [place] [address] 08/28/2016 11:31:21 08/28/2016 13:05:19 Acute sinusitis 96566857 J01.90 doxycyclin e x 10d cont OTC symptomati c meds [id number] Vaughn Grant MD [facility] [address] [place] [address] 11/10/2016 15:30:11 11/11/2016 15:23:54 Low back pain 202252158 M54.5 meloxicam, flexeril. home exercises. order for PT given. work restrictio ns [id number] Vaughn Grant MD [facility] [address] [address] 11/13/2016 11:15:16 11/13/2016 11:46:03 Low back pain 892210014 M54.5 cont meloxicam, flexeril prn. no light duty available at work, will need to be off and may return to full duty 11/18 [id number] [facility] [address] [place] [address] 02/09/2017 14:42:56 02/09/2017 16:04:46 Gastroenteritis 50889888 K52.9 possible food poisoning. improving. cont supportive care. [id number] Vaughn Grant MD [facility] [address] [place] [address] 08/26/2017 11:20:57 08/28/2017 08:44:29 Immunization refused 633452559 Z28.20 Acute sinusitis 78178066 J01.90 doxycyclin e x 10d. cont OTC symptomati c meds Dyspnea 525710199 R06.00 check cxr, pft Sleep apnea 52261887 G47 .30 observed apneas. check sleep study Health Concerns Section Related Observation LastModified by Organization Detai ls LastModified Time None Recorded Concern Status LastModified by Organization Details LastModified Time None Recorded Advance Directives Directive None Recorded Payers Encounter Date Sequence Insurance Name Policy Number Policy Corrales Covered Member ID Corrales Member ID Guarantor Name 08/28/2016 1 [facility] [employer] Eunkyung A Vladimir [id number] Eunkyung A Vladimir 11/10/2016 1 [facility] [employer] E[place]yung A Vladimir [id number] Eunkyung A Vladimir 11/13/2016 1 [facility] [employer] [id number] Eunkyung A Vladimir [id number] Eunkyung A Vladimir 02/09/2017 1 [facility] [employer] Eunkyung A Vladimir [id number] Eunkyung A Vladimir 08/26/2017 1 [facility] [employer] Eunkyung A Vladimir [id number] Eunkyung A Vladimir Notes Date Note Type Note Provider Name and Address Organization Details Recorded Time 08/28/2016 text/html Sore ThroatRepor lorraine bypatient.Location:bi lateral Duration:started 2 week(s) ago Quality:painful;diffi culty swallowing;hoarseness ;symptoms worse during the day;burning Context:no recent travel; no tick/insect bites; no new medications; no one else with similar symptoms Alleviating factors:salt water gargles; warm tea; nasal saline rinse; Tylenol, Ricola, broth, Vicks VapoRub Associated Symptoms:no fever; no swollen glands; no dysphagia; no nausea; no vomiting; no appetite loss; no headache; no itching throat; no choking; no globus sensation; no lethargy; no rash;cough;throat hoarseness; SOBNotes:Pt states she had a very bad cold X 2 weeks ago. Pt had a severe ST at that same time. Pt now still has a ST that is worse in the morning with some chest congestion and minimally productive cough with yellow sputum. Pt also has some SOB and sinus congestion. Rudy ANDERSON, Vaughn Aparicio [facility],[address], [place], [address], [facility] 08/28/2016 12:12:47 11/10/2016 text/html Back PainReporte d bypatient.Location:pa in radiating to the buttocks(LT buttock) Quality:dull Severity:interference with work Onset/Timing:first episode; 2days ago Context:prior back problems Associated Symptoms:no fever; no weak limbs; no numbness of the legs/feet; no tingling; no incontinence; no shortness of breathNotes:Pt was packing things and moving boxes X 2 days ago. Yesterday pt woke up with stiffness and some pain radiating into the LT buttock yesterday. pain with prolonged standing/sitting. using ibuprofen. Vaughn Grant MD [address] [facility] [address], [place], [address], [facility] 11/10/2016 16:38:47 11/13/2016 text/html Back PainReporte d bypatient.Notes:pt states that her job is saying she needs to be off for 2 weeks in order to have light duty granted. pt has not started PT, but did go for acupuncture. She is feeling better. Vaughn Grant MD [address] [facility] [address], [place], [address], [facility] 11/13/2016 11:40:15 02/09/2017 text/html Abdominal PainReported bypatient.Location:pe riumbilical Quality:pain;bloating Associated Symptoms:no fever; no chills; no blood in the urine; no heartburn; no shortness of breath;nausea;diarrhe aNotes:Pt was at a BBQ X 2 days ago. Later that evening the pt began having diarrhea and nausea. Pt states she still has some pain, bloating, nausea, and watery stool. Pt requests return to work note. Pt was at a BBQ X 2 days ago. Later that evening the pt began having diarrhea and nausea. no vomiting. Pt states she still has some pain, bloating, nausea, and watery stool. no blood in stool Vaughn Grant MD [address] [facility],[address], [place], [address], [facility] [facility] 15:29:01 08/26/2017 text/html Upper Respirator y SymptomsReported bypatient.Location:he ad; chest Quality:productive cough;congested Severity:mild Onset/Timing:gradual Context:no foreign travel; non-smoker;sick contact Modifying Factors:OTC medication (mucinex D) Associated Symptoms:shortness of breath;sweats;diarrhe aNotes:x 2 weeks; has gotten worse over last 4 days. Pt c/o nasal congestion; chest congestion. fluctuating. no fever. c/o some SOB. Chest pressure when laying down x 9 months . Pt was on a z-vivien for some oral surgery; finished abx on 08/17/2017. Rudy ANDERSON, Vaughn Sagastume [address] [place] [address],[address], [place], [address], [facility] 08/26/2017 12:12:48 OBGyn Episode No OBEpisode recorded.
--- OUTSIDE RECORDS SUMMARY | 2024-09-22 11:30 | XMS_ITS | Clinical Summary ---
Author Organization [facility] [place] [address] Address [address] [place] [address] Care Team Providers Care Director Cost Name Role Phone Nancy Anjelica Primary Care [...] 03/18/2021 Lipid screening 01/14/2021 SVT (supraventricular tachycardia) Surgical History Surgery Date Site/Laterality Comments WISDOM TOOTH EXTRACTION Medical History Medical History Date Comments Acid reflux Hyperlipidemia Irritable bowel SVT (supraventricular tachycardia) (HCC) Sinusitis GERD (gastroesophageal reflux disease) Family History Medical History Relation Name Comments Kidney Transplant Brother Kidney disease Brother Acute myocardial infarction Father Diabetes Father Hyperlipidemia Father Hypertension Father Parkinsons Disease Father Cancer Mother Hypertension Mother Allergy (severe) Sister Relation Name Status Comments Brother Alive Father (Age 76) Mother Alive Sister Alive Social History Tobacco Use Types Packs/Day Years Used Date Smoking Tobacco: Never Smokeless Tobacco: Never Personal Safety Answer Date Recorded Getting School Help Needed Not on file 10/15 Comments Unknown Sex and Gender Information Value Date Recorded Sex Assigned at Not on file Legal Sex Female 10:20 AM CDT Gender Identity Not on file Sexual Orientation Not on file Obstetrics History Last Filed Vital Signs Vital Sign Reading [...] 12/24/2022 9:10 AM CDT Plan of Treatment Health Maintenance Due Date Last Done Comments Breast Cancer Screening-Mammogram 1969 Cervical Cancer Screening 1969 Colon Cancer Screening-Colonoscopy 1969 Depression Screening 1969 Hepatitis C Screening 1969 DTaP/Tdap/Td Vaccine (1 - Tdap) 01/18/1980 Hepatitis B Screening 1987 Regular Well Visit/Exam 18-64 1987 Zoster Vaccine (1 of 2) 2019 Influenza Vaccine (#1) 2024 0, 05/24/2019 Pneumococcal vaccine <65 Aged Out No longer eligible based on patient's age to complete this topic Insurance [facility] CHOICE PLUS [facility] HMO/PPO Address: [address] [address] [place] [address] [employer] Care Teams Director Cost Relationship Specialty Start Date End Date Anjelica Cruz PCP - General Family Medicine 09/16/22
[2024-09-22 11:43] LABS: Basophils Percent Auto 0.4 % (0.2-1.2); Eosinophils Percent Auto 0.4 % (0-4.4); Hematocrit 41.9 % (37.0-47.0); Hemoglobin 13.4 g/dL (12.0-15.0); Lymphocytes Absolute Auto 1.77 K/mm3 (0.9-3.2); Mean Corpuscular Hemoglobin 27.1 pg (26-34); Mean Corpuscular Volume 84.8 fl (80-100); Mean Platelet Volume 8.7 fl (7.4-10.4); Monocytes Absolute Auto 0.4 K/mm3 (0.1-0.6); Monocytes Percent Auto 13.2 % (2.6-8.5); Neutrophils Absolute Auto 0.7 K/mm3 (1.3-6.7); Platelet Count Result 265 k/mm3 (150-375); Red Blood Count 4.94 M/mm3 (4.2-5.4); White Blood Count 2.8 K/mm3 (4.5-10.0)
[2024-09-22 11:51] LABS: Alanine Aminotransferase 32 U/L (6-35); Albumin Level 4.1 g/dL (3.5-5.1); Alkaline Phosphatase 121 U/L (38-126); Anion Gap 10 mmol/L (4-12); Aspartate Amino Transferase 35 U/L (14-36); Bilirubin,Total 0.5 mg/dL (0.2-1.3); Blood Urea Nitrogen 12 mg/dL (7-17); Carbon Dioxide 28 mmol/L (22-30); Chloride 102 mmol/L (98-107); Estimated CRCL calculation 74 ml/min; Estimated Glomerular Filt Rate > 60; Glucose 100 mg/dL (65-110); Lipase 170 U/L (23-300); Potassium 3.8 mmol/L (3.4-5.0); Sodium 140 mmol/L (137-145)
[2024-09-22 12:03] LABS: BEDSIDEPREGUCG Negative (Negative)
[2024-09-22 12:18] LABS: Influenza A QL RT-PCR Positive (Negative); Influenza B QL RT-PCR Negative (Negative); SARS-CoV-2 RNA PCR Negative (Negative)
[2024-09-22 12:19] LABS: Add Urine Microscopic? YES; Appearance Urine Cloudy (Clear); Bacteria Urine 1+ /hpf; Bilirubin Urine 1+ (Negative); Blood Urine Trace (Negative); Calcium Oxalate Crystals Urine Present /hpf; Color Urine Dark Yellow (Yellow); Glucose Urine UA Negative (Negative); Ketones Urine 1+ mg/dL (Negative); Leukocyte Esterase Ur Trace LEU/UL (Negative); Mucus Urine Present /lpf; Need Manual Microscopic Reviewed; Nitrate Urine Negative (Negative); Non Pathogenic Casts 0-2; Protein Urine 1+ mg/dL (Negative); Specific Grav Ur 1.023 (1.001-1.035); Squamous Epithelial Cell Urine Moderate /hpf (Few); pH Urine 5.5 (5.0-9.0)
[2024-09-22 12:28] LABS: Atypical Lymphocytes Present; Platelet Estimate Adequate (Adequate); Schistocytes None Seen
[2024-09-22] MEDS: SODIUM CHLORIDE 0.9% IV 1,000 ML 999 ML IV CONT (12:51)
[2024-09-22] MEDS: ONDANSETRON INJ 4 MG/2 ML VIAL IV PUSH ×2 (12:52→15:56)
[2024-09-22] MEDS: FAMOTIDINE 20 MG/2 ML VIAL IV PUSH (12:53)
--- OUTSIDE RECORDS SUMMARY | 2024-09-22 15:35 | XMS_ITS | Referral Summary ---
Author Organization [facility] [place] [address] Address [address] [place] [address] Care Team Providers Care Licensed Master Social Worker Name Role Phone Nancy Anjelica Primary Care [...] Plan of Treatment [place] [address] Care Teams Licensed Master Social Worker Relationship Specialty Start Date End Date Anjelica Cruz PCP - General Family Medicine 09/16/22
--- OUTSIDE RECORDS SUMMARY | 2024-09-22 15:35 | XMS_ITS | Clinical Summary ---
Author Organization [facility] [place] [address] Address [address] [place] [address] Care Team Providers Care Database Marketing Analyst Name Role Phone Nancy Anjelica Primary Care [...] patient's age to complete this topic Insurance [facility] CHOICE PLUS CIG[employer] [facility], [facility] HMO/PPO Address: [address] [place] [address] Care Teams Database Marketing Analyst Relationship Specialty Start Date End Date Anjelica Cruz PCP - General Family Medicine 09/16/22
--- NOTE | 2024-09-22 15:40 | ED_ITS ---
HPI - General Adult General Chief complaint: Abdominal Pain Stated complaint: body aches, nausea, abd pain, fever, chills Time Seen by Provider: 09/22/24 11:27 History of Present Illness HPI narrative: 54-year-old female history of gastric reflux presents emergency department for evaluation for flu-like symptoms and upper abdominal pain. Patient states she has had a lot of coughing and has developed epigastric and lower abdominal pain. Patient does take pantoprazole for her GI issues and patient does have history of SVT for which she takes metoprolol Related Data Home Medications ?Medication ?Instructions ?Recorded ?Confirmed ?Last Taken ?Type cetirizine 10 mg tablet (Zyrtec) 10 mg PO DAILY 10/07/19 08/09/24 Unknown History Allergies Allergy/AdvReac Type Severity Reaction Status Date / Time Penicillins Allergy Severe hives Verified 09/22/24 12:44 Review of Systems 2 Review of Systems: All systems reviewed & are unremarkable except as noted in HPI and below PMFSH Past Medical History Medical History COVID-19 Hypothyroidism Mild persistent reactive airway disease with acute exacerbation Osteopenia Seasonal allergies History of paroxysmal supraventricular tachycardia Irritable bowel High cholesterol Acid reflux Surgical History Surgical History Hx of cervical spine surgery [place] teeth removed History of colonoscopy Family History Family History Father Diabetes mellitus Acute myocardial infarction Hypertension High cholesterol Mother Hypertension Cancer of adenoid Father Family history of mental disorder Cerebrovascular accident Family history of Parkinson's disease Family history of coronary artery disease Family history of congestive heart failure Sibling Breast cancer Social History Social History Smoking status: Never smoker Second hand tobacco smoke exposure: No Alcohol intake: never Substance use: never Do You Feel Safe in your Home?: Yes Lack of Transportation: No Lack of Food: Sometimes True Current Housing: I Have Housing Concerned About Future Housing: No Difficulty Paying Gas/Electric Bills: YES Difficulty Paying for Meds: Decline to Answer Currently Unemployed: No Education: Bachelor's Degree Difficulty w/ Childcare or Family Care: No Living arrangements: with family Occupation/Education: occupation Additional occupation/education comments: [employer] Gender identity (if verbalized by the patient): Female Sexual Orientation (if Verbalized by the Patient): Straight or Heterosexual Exam 2 Narrative: APPEARANCE: Uncomfortable appearing secondary to abdominal pain HEAD: normocephalic, atraumatic. EYES: PERRLA/EOMI, conjunctivae clear. NOSE: Normal no drainage EARS:TMS clear with good light reflex. THROAT: Pharynx clear, no exudate. NECK: Supple. No adenopathy, no masses. RESPIRATORY: Airway patent, respirations nonlabored. Clear to auscultation bilaterally, no rales, rhonchi, wheezing. CARDIOVASCULAR: Regular rate and rhythm without murmurs rubs or gallops. ABDOMINAL: Epigastric tenderness to palpation MUSCULOSKELETAL: Moves all extremities. Strength/ROM intact, No edema, No calf tenderness. NEURO: Alert. Cranial nerves II through XII intact. Good gait. Good coordination SKIN: Warm, dry. Normal Color Course Vital Signs Vital signs: Vital Signs Temperature 98.6 F 09/22/24 10:59 Pulse Rate 93 09/22/24 10:59 Respiratory Rate 16 09/22/24 10:59 Blood Pressure 129/89 09/22/24 10:59 Pulse Oximetry 98 09/22/24 10:59 Oxygen Delivery Room Air 09/22/24 10:59 Temperature 98.6 F 09/22/24 10:59 Pulse Rate 66 09/22/24 18:23 Respiratory Rate 16 09/22/24 18:23 Blood Pressure 136/85 09/22/24 18:23 Pulse Oximetry 96 09/22/24 18:23 Oxygen Delivery Room Air 09/22/24 10:59 Medical Decision Making [facility] Narrative Medical decision making narrative: 54-year-old female present to the emergency department for evaluation for cough congestion and epigastric abdominal pain. Patient is currently afebrile with no leukocytosis and hemoglobin of 13.4. Patient has no significant abnormalities on her CMP including normal AST ALT alk-phos and lipase. Urine was negative for infection and patient is having no urinary symptoms, urine culture was ordered. Patient did test positive for influenza A. Patient was treated with GI cocktail, famotidine and medications for pain control. On re-evaluation patient did feel significantly improved. CT abdomen pelvis showed no acute abnormality. Chest x-ray showed no acute abnormality. Patient has been taking ibuprofen for pain control Vital Signs Vital Signs: Vital Signs Temperature 98.6 F 09/22/24 10:59 Pulse Rate 93 09/22/24 10:59 Respiratory Rate 16 09/22/24 10:59 Blood Pressure 129/89 09/22/24 10:59 Pulse Oximetry 98 09/22/24 10:59 Oxygen Delivery Room Air 09/22/24 10:59 Temperature 98.6 F 09/22/24 10:59 Pulse Rate 66 09/22/24 18:23 Respiratory Rate 16 09/22/24 18:23 Blood Pressure 136/85 09/22/24 18:23 Pulse Oximetry 96 09/22/24 18:23 Oxygen Delivery Room Air 09/22/24 10:59 Lab Data 09/22/24 11:32 09/22/24 11:32 Labs: Lab Results 09/22/24 09/22/24 09/22/24 Range/Units 11:32 11:42 11:56 WBC 2.8 L (4.5-10.0) K/mm3 RBC 4.94 (4.2-5.4) M/mm3 Hgb 13.4 (12.0-15.0) g/dL Hct 41.9 (37.0-47.0) % MCV 84.8 (80-100) fl MCH 27.1 (26-34) pg MCHC 32.0 (32-36) g/dl RDW 13.0 (11.5-14.5) % Plt Count 265 (150-375) k/mm3 MPV 8.7 (7.4-10.4) fl Immature Gran % (Auto) 0.0 (0-0.5) % Neut % (Auto) 23.0 L (45.5-73.1) % Lymph % (Auto) 63.0 H (18.3-44.2) % [place] % (Auto) 13.2 H (2.6-8.5) % Eos % (Auto) 0.4 (0-4.4) % Baso % (Auto) 0.4 (0.2-1.2) % Lymph # (Auto) 1.77 (0.9-3.2) K/mm3 [place] # (Auto) 0.4 (0.1-0.6) K/mm3 Eos # (Auto) 0.0 (0-0.3) K/mm3 Baso # (Auto) 0.0 (0.0-0.1) K/mm3 Abs Immat Gran (auto) 0.00 (0.00-0.031) K/mm3 Absolute Neuts (auto) 0.7 L (1.3-6.7) K/mm3 Absolute Nucleated RBC 0.000 (0.0-0.012) K/mm3 Nucleated RBC % 0.0 (0.0-0.2) % Atypical Lymphocytes Present Platelet Estimate Adequate (Adequate) Schistocytes None seen Sodium 140 (137-145) mmol/L Potassium 3.8 (3.4-5.0) mmol/L Chloride 102 (98-107) mmol/L Carbon Dioxide 28 (22-30) mmol/L Anion Gap 10 (4-12) mmol/L BUN 12 (7-17) mg/dL Creatinine 0.66 L (0.7-1.0) mg/dL Estim Creat Clear Calc 74 ml/min Estimated GFR > 60 (59 - ) Glucose 100 (65-110) mg/dL Calcium 9.0 (8.4-10.2) mg/dL Total Bilirubin 0.5 (0.2-1.3) mg/dL AST 35 (14-36) U/L ALT 32 (6-35) U/L Alkaline Phosphatase 121 (38-126) U/L Total Protein 8.0 (6.3-8.2) g/dL Albumin 4.1 (3.5-5.1) g/dL Lipase 170 (23-300) U/L Urine Color Dark yellow (Yellow) Urine Appearance Cloudy H (Clear) Urine pH 5.5 (5.0-9.0) Ur Specific [place] 1.023 (1.001-1.035) Urine Protein 1+ H (Negative) mg/dL Urine Glucose (UA) Negative (Negative) mg/dL Urine Ketones 1+ H (Negative) mg/dL Ur Blood (Man) Trace (Negative) Urine Nitrate Negative (Negative) Urine Bilirubin 1+ H (Negative) Urine Urobilinogen 1.0 (<2.0) mg/dL Add Ur Microanalysis Reviewed Leukocyte Esterase Rfl Trace H (Negative) BEN/UL Urine RBC 3-5 H (0-2) /hpf Urine WBC 6-10 H (0-3) /hpf Ur Squamous Epith Cells Moderate (Few) /hpf Calcium Oxalate Crystal Present (None) /hpf Urine Bacteria 1+ H /hpf Urine Casts 0-2 Urine Mucus Present /lpf POC Urine HCG, Qual Negative (Negative) Influenza A (RT-PCR) Positive A (Negative) Influenza B (RT-PCR) Negative (Negative) SARS-CoV-2 RNA (RT-PCR) Negative (Negative) Discharge Plan Discharge Clinical Impression: Epigastric abdominal pain, Influenza A Patient Disposition: Home, Self-Care Condition: Stable Instructions: Antibiotic Form, Diet for Stomach Ulcers and Gastritis (ED), Influenza (DC), Abdominal Pain (ED) Additional Instructions: Refrain from taking ibuprofen. Continue to take your pantoprazole all as directed. Albuterol inhaler as needed for shortness of breath. Tessalon [place] as needed for cough suppression. [place] as needed for additional pain control. Have close follow-up with your primary care physician. Patient Language: Macedonian Prescriptions: New hydrocodone-acetaminophen 5-325 mg tablet 1 tablet PO Q12H PRN (Reason: pain) Qty: 14 0RF benzonatate 100 mg capsule 100 mg PO TID PRN (Reason: cough) Qty: 14 0RF albuterol sulfate 90 mcg/actuation HFA aerosol inhaler 1 puff inhalation QID Qty: 6.7 0RF ondansetron 4 mg tablet,disintegrating 4 mg PO Q8H PRN (Reason: nausea and vomiting) Qty: 14 0RF No Action cetirizine [Zyrtec] 10 mg tablet 10 mg PO DAILY fluticasone propionate [Flonase Allergy Relief] 50 mcg/actuation spray,suspension 2 spray intranasal DAILY PRN (Reason: nasal congestion) Qty: 16 0RF Rx Instructions: administer into each nostril metoprolol succinate 50 mg tablet extended release 24 hr 50 mg PO DAILY Qty: 90 1RF pantoprazole 20 mg tablet,delayed release (DR/EC) 20 mg PO QAM Qty: 90 3RF prochlorperazine maleate [Compazine] 10 mg tablet 10 mg PO Q8H PRN (Reason: nausea and vomiting) Qty: 30 0RF dicyclomine 20 mg tablet 20 mg PO TID PRN (Reason: abdominal pain) Qty: 30 0RF albuterol sulfate 90 mcg/actuation HFA aerosol inhaler 2 puff INHALATION Q4H PRN (Reason: shortness of breath or wheezing) Qty: 8.5 0RF cholecalciferol (vitamin D3) 1,250 mcg (50,000 unit) capsule 50,000 unit PO WEEKLY Qty: 12 3RF meloxicam 15 mg tablet See Rx Instructions .ROUTE .COMPLEX Qty: 90 0RF Dose Instruction: TAKE 1 TABLET BY MOUTH EVERY DAY Rx Instructions: TAKE 1 TABLET BY MOUTH EVERY DAY Follow-up/Referrals: Anjelica Cruz APRN [Primary Care Provider] -
[2024-09-22] MEDS: HYDROmorphone HCL INJ (*CRX) 1 MG/ML SYR 0.5 MG IV PUSH (15:56)
[2024-09-22] MEDS: PANTOPRAZOLE SODIUM IV 40 MG VIAL IV PUSH (15:57)
[2024-09-22] MEDS: BELLADONNA ALK/PHENOB ELIX 10 ML, MAG HYDROX/ALUMINUM HYD/SIMETH 30 ML, LIDOCAINE 2% VI... PO (16:00)
== END 2024-09-22 18:31 | disposition home or self-care (01) ==
PROVIDERS: Physician Assistant; Emergency Provider Emergency Medicine; PCP Nurse Practitioner Family
DX: J10.1 Influenza due to other identified influenza virus with other respiratory manifestations (principal); R10.9 Unspecified abdominal pain; Z20.822 Contact with and (suspected) exposure to COVID-19; E03.9 Hypothyroidism, unspecified; E78.00 Pure hypercholesterolemia, unspecified; J45.30 Mild persistent asthma, uncomplicated; K58.9 Irritable bowel syndrome, unspecified; K21.9 Gastro-esophageal reflux disease without esophagitis; M85.80 Other specified disorders of bone density and structure, unspecified site; Z86.16 Personal history of COVID-19; D25.9 Leiomyoma of uterus, unspecified
CPT/HCPCS: 36415; 71046; 74177; 80053; 81001; 81025; 83690; 85025; 87636; 96361; 96374; 96375; 96376; 99284; A9270; J1171; J2405; J2470; J7030; Q9967